=== PATIENT | male | born 1945 | race Caucasian/White ===

== ENCOUNTER 2018-12-14 10:53 | Inpatient (IN) | payer OTHER, MEDICARE ==
[~2018-12-14] VITALS: Ht 177.8 cm; Wt 62.3 kg
[2018-12-14 11:05] LABS: Calcium, Ionized (POC) 1.16 mmol/L (1.10-1.46); Chloride (POC) 92 mmol/L (98-108); Creatinine (POC) 0.8 mg/dL (0.8-1.3); Glucose (ISTAT POC) 194 mg/dL (70-99); Hemoglobin (POC) 14.6 g/dL (13.5-17.5); Potassium (POC) 3.7 mmol/L (3.5-5.5); Sodium (POC) 126 mmol/L (135-148); Total CO2 (POC) 17 mmol/L (21-32)
[2018-12-14 11:14] LABS: BASOPHILS ABSOLUTE AUTO 0.05 K/mm3 (0.00-0.23); BASOPHILS PERCENT AUTO 1 % (0-2); EOSINOPHILS ABSOLUTE AUTO 0.01 K/mm3 (0.00-0.68); EOSINOPHILS PERCENT AUTO 0 % (0-6); Hematocrit 40.9 % (37.0-53.0); Hemoglobin 13.9 g/dL (13.5-17.5); IMMATURE GRAN ABSOLUTE AUTO 0.24 K/mm3 (0.00-0.10); IMMATURE GRAN PERCENT AUTO 2 % (0-1); LYMPHOCYTES ABSOLUTE AUTO 1.73 K/mm3 (0.84-5.20); LYMPHOCYTES PERCENT AUTO 16 % (21-46); MONOCYTES ABSOLUTE AUTO 0.49 K/mm3 (0.16-1.47); MONOCYTES PERCENT AUTO 5 % (4-13); Mean Corpuscular HGB 38.3 pg (26.0-34.0); Mean Corpuscular Volume 113 fL (80-100); Mean Platelet Volume 9.1 fL (9.1-12.4); NEUTROPHILS ABSOLUTE AUTO 8.38 K/mm3 (1.96-9.15); NEUTROPHILS PERCENT AUTO 77 % (41-73); NRBC ABSOLUTE 0.03 K/mm3 (0.00-0.02); NRBC Auto 0.3 /100 WBC (0.0-0.2); Platelet Count 180 K/mm3 (150-400); RDW Coefficient Variation 13.3 % (11.7-14.2); RDW Standard Deviation 56.1 fL (35.1-46.3); Red Blood Cell Count 3.63 M/mm3 (4.30-5.90)
[2018-12-14 11:27] LABS: International Normalized Ratio 0.95; Prothrombin Time Results 10.1 Sec (9.7-11.5)
[2018-12-14 11:34] LABS: Alanine Aminotransfer (ALT/SGP 137 U/L (12-78); Albumin, Blood 3.9 g/dL (3.4-5.0); Alk Phos 154 U/L (50-136); Anion Gap 22 mmol/L (6-16); Aspartate Aminotrans (AST/SGOT 207 U/L (12-37); Bilirubin, Total 1.2 mg/dL (0.1-1.0); Blood Urea Nitrogen 5 mg/dL (8-24); Bun/Creatinine Ratio 6.8 (12.0-20.0); CO2, Blood 15 mmol/L (21-32); Calcium, Blood 9.3 mg/dL (8.5-10.1); Chloride, Blood 91 mmol/L (98-108); Creatinine, Blood 0.74 mg/dL (0.60-1.20); Ethanol (Alcohol), Blood, Med <3 mg/dL; Globulin, Blood 3.9 g/dL (2.2-4.0); Glomerular Filtration Rate >60 (60-); Glucose, Blood 188 mg/dL (70-99); Potassium, Blood 3.7 mmol/L (3.5-5.5); Sodium, Blood 128 mmol/L (136-145); Total Protein, Blood 7.8 g/dL (6.4-8.2)
[2018-12-14 12:02] LABS: PCO2 Arterial 48.6 mmHg (35-45); PO2 Arterial 253 mmHg (80-100)
[2018-12-14] MEDS ORDERED: Prozac40 MG PO (13:01)
[2018-12-14] MEDS ORDERED: Mobic15 MG PO (13:01)
[2018-12-14] MEDS ORDERED: Lipitor20 MG PO (13:01)
[2018-12-14] MEDS ORDERED: Aspir 8181 MG PO (13:02)
[2018-12-14] MEDS ORDERED: VALSARTAN160 MG PO (13:02)
[2018-12-14] MEDS ORDERED: B-121000 MC2 PO (13:02)
[2018-12-14] MEDS ORDERED: VITAMIN D31000 UNI2 PO (13:03)
--- NOTE | 2018-12-14 14:26 | NUR ---
met with patients family and review of pt in ER. Follow up after plan is presented.
[2018-12-14 14:35] LABS: Base Excess Venous -5.2 mmol/L; Bicarbonate Venous 20.4 mmol/L (24.0-30.0); PCO2 Venous 37.5 mmHg (38-42); PO2 Venous 67.7 mmHg (38-42); pH Blood Venous 7.35 (7.34-7.37)
[2018-12-14 15:15] LABS: U Amphetamine Screen Not Detected; U Barbituate Screen Not Detected; U Benzodiazapine Screen Not Detected; U Buprenorphine Screen Not Detected; U Cannabinoids Screen Not Detected; U Cocaine Screen Not Detected; U Methadone Screen Not Detected; U Methamphetamine Screen Not Detected; U Opiates Screen Not Detected; U Oxycodone Screen Not Detected; U Phencyclidine Screen Not Detected; U Propoxyphene Screen Not Detected
--- NOTE | 2018-12-14 16:44 | NUR ---
1350: PT TO ICU 9 FROM ER INTUBATED AND SEDATED, DR. PANIAGUA AT BEDSIDE. VENT SETTINGS AC 16, Vt 400, PEEP 5, FIO2 65%. PT'S VT'S 500'S, RR 28, SPO2 98-100%, VENT CHANGED TO PRESSURE SUPPORT SETTINGS BY WITH PEEP 5, FIO2 50%, PT'S Vt, AND SPO2 UNCHANGED. PT APPEARS MORE COMFORTABLE, IS NOT RESTLESS, RR 20. COPIUS AMOUNTS OF THICK YELLOW SPUTUM FROM ETT. LS CLEAR AFTER SUCTIONING. HR SINUS TACH, BP ELEVATED, ABD SOFT, NONTENDER TO PALPATION. BERGERON SECURED, PATENT AND DRAINING TO GRAVITY. PROPOFOL AT 50MCG/KG/MIN, PT OPENS EYES TO TOUCH, DOES NOT FOLLOW COMMANDS, TRACKS MOVEMENTS BRIEFLY BEFORE CLOSING EYES AGAIN. ELIER. PT'S S/O AT BEDSIDE SPEAKING WITH DOCTOR. 1515: CRITICAL LACTIC ACID LEVEL RECEIVED, REPORT TO DOCTOR PANIAGUA, NEW ORDERS RECEIVED. 1630: SECOND IV INSERTED BY TETE CHEEMA. BOLUSES AND ABX INFUSING PER ORDERS, PROPOFOL 45MCG, PT WAKES TO NOISE, STILL DOES NOT FOLLOW COMMANDS. CXR COMPLETED.
--- NOTE | 2018-12-14 17:38 | NUR ---
SPOKE WITH ON PHONE TO COMPLETE ADMISSION PAPERWORK, REPORTS PT GETS A FLU SHOT AND HAS NOT HAD ONE YET THIS YEAR, WILL ADMINISTER PER ORDERS. PT'S RR 9-10, PT RESTING QUIETLY, OPENS EYES TO VOICE. PROPOFOL DECREASED TO 40MCG, RR 12, WILL CONTINUE TO TITRATE ABLE. MOVEMET NOTED IN ALL EXTREMETIES, NO LEFT SIDED GAZE PRESENT, PT MOVES HEAD LEFT AND RIGHT AND LOOKS IN BOTH DIRECTIONS. DOES NOT FOLLOW COMMANDS. VSS. SEIZURE PRECAUTIONS IN PLACE.
--- NOTE | 2018-12-14 19:09 | NUR ---
PT REMAINS ON SPONTANEOUS VENT SETTING 12/05, FIO2 30%. RR 12, SPO2 98, Vt 700'S. OCCASIONAL COUGH NOTED, SPUTUM PRODUCTION HAS SLOWED TO MODERATE OUT, REMAINS THICK AND YELLOW. LS CLEAR. PT RESTING WITH EYES CLOSED, WAKES EASILY TO VOICE, DOES NOT FOLLOW COMMANDS, DOES TRACK MOVEMENT. PROPOFOL 35MCG INFUSING. BLANKETS OF FOR LOW GRADE TEMP. OGT WITH 400ML GREEN OUTPUT. REPORT TO ONCOMING SHIFT.
--- NOTE | 2018-12-14 19:45 | NUR ---
ASSUMED CARE RECEIVED REPORT FROM NEEL EPSTEIN. PT IS LYING IN BED WITH EYES OPEN, LOOKING AT YOU, BUT IS NOT FOLLOWING COMMANDS. PT IS INTUBATED WITH 7.5 ETT, 26 AT THE LIP. VENT IS SET AT SPONTANEOUS 10/5, 30%. CURRENT GTTPS: PROPOFOL 35MCG/KG/MIN, AND NS 125ML/HR. PT HAS SCD'S ON BILATERAL CALVES, SWB ON BILATERAL WRISTS SECURED TO BED, A BERGERON PATENT AND HANGING TO GRAVITY. THE OG TUBE IS HOOKED UP TO LIS. BED IS LOW AND LOCKED,
--- NOTE | 2018-12-14 20:22 | NUR ---
CALL TO HOSPITALIST CALLED KANDACE REGARDING PT'S HYPERTENSION AND SHE INSTRUCTED ME TO LET IT BE FOR NOW AND TO CALL HER IF SBP > 220.
--- NOTE | 2018-12-14 21:56 | NUR ---
APNEA PT WENT APNEIC ON SPONTANEOUS SETTINGS, SO VENT WENT TO ACVC MODE FOR APPROX. 5 MINS. HE WAS LESS RESPONSIVE THEN EARLIER, WITH STIMULATION HE JUMPED BACK INTO SPONTANEOUS MODE. I HAVE BEEN TITRATING DOWN SEDATION TO ACHEIVE JIMMY OF 3. PT IS CURRENTLY A LITTLE BRADYNEPA, WILL CONTINUE TO MONITOR SEDATION IS TITRATED DOWN.
--- NOTE | 2018-12-15 07:31 | NUR ---
SHIFT SUMMARY PT REMAINS INTUBATED WITH 7.4 ETT, 26 AT LIP. CURRENTLY ON SPONTANEOUS SETTINGS WITH 10/5 PS, 25% FIO2. CURRENTLY INFUSING IS PROPOFOL AT 25MCG/KG/MIN, AND NS AT 125ML/HR. BERGERON IS PATENT AND HANGING TO GRAVITY, HE HAD ADEQUATE URINE OUTPUT OVERIGHT (SEE I/O'S). HE HAS AN OG TUBE HOOKED UP TO LIS, WITH SIGNIFICANT OUTPUT (475ML). PT IS INCREASINGLY RESPONSIVE AND ALERT. START OF SHIFT PT COULD ONLY OPEN EYES AND TRACK, ALONG WITH MOVING ALL EXTREMETIES (LEFT ARM IS LIMITED), NOT FOLLOWING ANY COMMANDS. OVERNIGHT PT CAN NOW NOD, YES AND SHAKE HIS HEAD NO TO QUESTIONS. HE SQUEEZED MY FINGERS, WITH EQUAL ROVING COURT REPORTER AND WIGGLED TOES. HE HAS NO FACIAL DROOP PRESENT. HE DENIED PAIN OR GREAT DISCOMFORT. PT IS IN SINUS RHYTHM, STABLE BP. FAIRLY CLEAR AND DIMINISHED IN LUNG BASES. PRODUCING MODERATE AMOUNT OF THIN, CLEAR SECRETIONS FROM TRACHEA AND ORAL CAVITY. NO BM OVERNIGHT, ACTIVE BT'S, AND PASSING GAS. BERGERON IS PATENT AND HANGING TO GRAVITY, PT HAD ADEQUATE URINE OUT PUT (SEE I/O'S). ~1700-1800ML OF IVF INPUT. BED IS LOW AND LOCKED. CALL LIGHT WITHIN REACH.
[2018-12-15 08:20] LABS: Hematocrit 29.6 % (37.0-53.0); Hemoglobin 10.2 g/dL (13.5-17.5)
--- NOTE | 2018-12-15 08:50 | NUR ---
DR WRIGHT: PROVIDER AT BEDSIDE. NO CHANGES AT THIS TIME. CONTINUE W/ POC PER DR PANIAGUA. WILL CONTINUE TO MONITOR & UPDATE NEEDED.
--- NOTE | 2018-12-15 09:00 | NUR ---
ASSUMED CARE: REPORT RECEIVED FROM CHANDNI Sommer RN. ASSUMED CARE OF THIS PT AT APPROX 0700. ON ASSESSMENT, THE PT IS AWAKE & ANSWERING YES/ NO QUESTIONS W/ HEAD NODS. HE BECOMES AGITATED EASILY W/ STIMULUS & NEEDS REMINDERS TO REMAIN CALM. PROPOFOL FOR SEDATION DOCUMENTED. LS ARE CLEAR T/O, VENT SETTINGS: SPONTANEOUS W/ PS 10/5 & FIO2 25%. PT TOLERATING WELL W/ O2 SATS > 92%. MONITOR SHOWS SR W/ HR 60s, BP STABLE, OCCASIONAL HTN W/ AGITATION. OGT TO LIS W/ MOD AMNTS OF GASTRIC DRAINAGE. BERGERON PATENT/ DRAINING. WILL CONTINUE TO MONITOR & UPDATE NEEDED.
[2018-12-15 09:12] LABS: Anion Gap 8 mmol/L (6-16); Blood Urea Nitrogen 7 mg/dL (8-24); Bun/Creatinine Ratio 10.5 (12.0-20.0); CO2, Blood 24 mmol/L (21-32); Calcium, Blood 8.2 mg/dL (8.5-10.1); Chloride, Blood 104 mmol/L (98-108); Creatinine, Blood 0.67 mg/dL (0.60-1.20); Glomerular Filtration Rate >60 (60-); Glucose, Blood 84 mg/dL (70-99); Potassium, Blood 3.3 mmol/L (3.5-5.5); Sodium, Blood 136 mmol/L (136-145)
--- NOTE | 2018-12-15 09:20 | NUR ---
DR PANIAGUA: PROVIDER AT BEDSIDE TO SEE PT. SHE IS HOPEFUL TO EXTUBATE TODAY. VENT SETTINGS CHANGED TO PS 5/5, FIO2 25%. ORDERS FOR CXR & LABWORK HAVE BEEN PLACED & SHE WOULD LIKE TO BE NOTIFIED WHEN RESULTS ARE BACK. WILL EXTUBATE IF STABLE. WILL CONTINUE TO MONITOR & UPDATE NEEDED.
[2018-12-15 09:30] LABS: Base Excess Venous -0.8 mmol/L; Bicarbonate Venous 24.1 mmol/L (24.0-30.0); PCO2 Venous 31.7 mmHg (38-42); PO2 Venous 82.2 mmHg (38-42); pH Blood Venous 7.47 (7.34-7.37)
[2018-12-15 09:51] LABS: BASOPHILS PERCENT AUTO 0 % (0-2); EOSINOPHILS PERCENT AUTO 0 % (0-6); Hematocrit 29.2 % (37.0-53.0); Hemoglobin 10.2 g/dL (13.5-17.5); IMMATURE GRAN ABSOLUTE AUTO 0.02 K/mm3 (0.00-0.10); IMMATURE GRAN PERCENT AUTO 0 % (0-1); LYMPHOCYTES PERCENT AUTO 10 % (21-46); MONOCYTES ABSOLUTE AUTO 0.27 K/mm3 (0.16-1.47); MONOCYTES PERCENT AUTO 5 % (4-13); Mean Corpuscular HGB 38.5 pg (26.0-34.0); Mean Corpuscular HGB Conc 34.9 g/dL (31.5-36.5); Mean Corpuscular Volume 110 fL (80-100); Mean Platelet Volume 9.5 fL (9.1-12.4); NEUTROPHILS ABSOLUTE AUTO 4.31 K/mm3 (1.96-9.15); NEUTROPHILS PERCENT AUTO 85 % (41-73); Platelet Count 103 K/mm3 (150-400); RDW Coefficient Variation 13.8 % (11.7-14.2); RDW Standard Deviation 55.5 fL (35.1-46.3); Red Blood Cell Count 2.65 M/mm3 (4.30-5.90)
[2018-12-15 10:08] LABS: Alanine Aminotransfer (ALT/SGP 73 U/L (12-78); Albumin, Blood 2.6 g/dL (3.4-5.0); Alk Phos 70 U/L (50-136); Anion Gap 5 mmol/L (6-16); Aspartate Aminotrans (AST/SGOT 63 U/L (12-37); Blood Urea Nitrogen 7 mg/dL (8-24); Bun/Creatinine Ratio 11.5 (12.0-20.0); CO2, Blood 23 mmol/L (21-32); Calcium, Blood 8.1 mg/dL (8.5-10.1); Chloride, Blood 105 mmol/L (98-108); Creatinine, Blood 0.61 mg/dL (0.60-1.20); Glomerular Filtration Rate >60 (60-); Glucose, Blood 83 mg/dL (70-99); Potassium, Blood 3.2 mmol/L (3.5-5.5); Sodium, Blood 133 mmol/L (136-145)
[2018-12-15 10:09] LABS: Albumin/Globulin Ratio 0.9 (0.8-1.8); Globulin, Blood 2.8 g/dL (2.2-4.0); Total Protein, Blood 5.4 g/dL (6.4-8.2)
--- NOTE | 2018-12-15 10:26 | NUR ---
EXTUBATION: DR PANIAGUA HAS REVIEWED CXR & LABWORK, STS SHE WOULD LIKE THE PT TO BE EXTUBATED THIS AM. SEDATION HAS BEEN TURNED OFF & DISCONNECTED FROM PT, OGT CLAMPED. JOHN, RT, NOTIFIED OF THIS & IS AT BEDSIDE. 2L NC PLACED ON PT, ETT SUCTIONED & PT EXTUBATED AT 1020. HE IS TOLERATING 2L NC WELL W/ O2 SATS > 92% & COUGH IS MODERATELY STRONG/ PRODUCTIVE. PT IS ENCOURAGE NOT TO TALK & TO REST. HE HAS BEEN REEDUCATED ON THE CALL LIGHT & NODS HEAD IN UNDERSTANDING. WILL CONTINUE TO MONITOR & UPDATE NEEDED.
--- NOTE | 2018-12-15 10:43 | NUR ---
UPDATE: PT FOUND ATTEMPTING TO GET OOB. HE IS ANGRY & STS HAVING TO PEE. HE IS REMINDED THAT HE HAS A CATHETER IN. HE IS SOMEWHAT REDIRECTABLE & STS HE WILL NOT ATTEMPT TO GET OOB AGAIN. BED ALARM NOW SET. DR PANIAGUA AWARE OF THIS & STS TO PLACE ORDERS FOR CIWA PROTOCOL. PT IS A DAILY DRINKER, 6-7 BEERS/DAY PER REPORT OF .
--- NOTE | 2018-12-15 12:26 | NUR ---
UPDATE: ALCOHOL W/D HAS BEEN DISCUSSED W/ THE PT's . SHE STS HE HAS NO INTENTION OF QUITTING DRINKING ETOH & THAT HE HAS NEVER BEEN W/O ALCOHOL LONG ENOUGH TO WITHDRAW BEFORE. WHEN THIS RN ASKS THE PT HOW MUCH ALCOHOL HE DRINKS ON A DAILY BASIS HE REPLIES "ENOUGH TO GET THE JOB DONE," HE WILL THEN ANSWER NO FURTHER QUESTIONS REGARDING ETOH & BECOMES FRUSTRATED W/ QUESTIONS. PT REQUESTS TO GET OOB TO CHAIR W/ PRESENT IN ROOM. AFTER LEAVES ROOM, PT DANGLES AT BEDSIDE & STS "I'M SO WEAK & OLD, NO WAY I CAN WALK FAR TODAY." WHEN ASKED TO THEN STAND & TX TO THE RECLINER CHAIR, THE PT YELLS AT STAFF "GET THE HELL OFF ME, I CAN WALK, I'M NOT THAT OLD!" WHEN IT IS EXPLAINED THAT FOR SAFETY PURPOSES WE NEED TO BE NEAR THE PT FOR FIRST TX OOB, HE STS "FORGET THIS, I'LL JUST STAY IN THIS DAMN BED THEN." PT HAS BEEN REPOSITIONED & BOOSTED IN BED, HE IS NOW RESTING QUIETLY & BED ALARM ON. WILL CONTINUE TO MONITOR & UPDATE NEEDED.
--- NOTE | 2018-12-15 17:43 | NUR ---
SHIFT SUMMARY: NO ACUTE CHANGES SINCE PRIOR UPDATES. PT REMAINS A&O, COOPERATIVE IN GENERAL. DOES BECOME SOMEWHAT AGITATED W/ CARE BUT IS EASILY REDIRECTABLE. LS ARE CLEAR T/O, PT ON RA W/ O2 SATS > 92%. DOES HAVE OCCASIONAL COUGH THAT IS PRODUCTIVE FOR CLEAR THIN SPUTUM. MONITOR SHOWS SR W/ HR 70s, BP IS STABLE, HTN W/ AGITATION. PT HAS NO GI COMPLAINTS, STS HE DOES NOT EAT MORE THAN ONE MEAL PER DAY AT HOME NORMALLY. BERGERON PATENT/ DRAINING. ALEN Casarez, PALLIATIVE CARE RN, HAS BEEN AT BEDSIDE TO DISCUSS CODE STATUS W/ THE PT HE HAD PRIOR EXPRESSED THAT HE WOULD NOT LIKE TO BE INTUBATED AGAIN. THE PT IS NOW A DNR & A POLST HAS BEEN COMPLETED. DR WRIGHT AWARE & POLST IS ON FRONT OF CHART TO BE SIGNED BY PROVIDER. ORDERS PLACED TO REFLECT DNR STATUS. WILL CONTINUE TO MONITOR & REPORT OFF TO ONCOMING RN.
--- NOTE | 2018-12-15 18:24 | NUR ---
[facility] INITIAL VISIT: INTRODUCED MYSELF TO PT WHO IS SITTING UP IN BED, EATING HIS DINNER, BEER CAN IN HAND. BEFORE I SPOKE HE STATED, "I'M DOING JUST FINE, IF THAT IS WHAT YOU WERE GOING TO ASK.". AFTER INTRODUCTIONS, I EXPLAINED MY PURPOSE IN VISITING TO CHECK ON S/S AND TO DISCUSS HIS WISHES FOR HIS CARE NOW AND IN THE FUTURE. HE HAD STATED TO HIS AND STAFF EARLIER THAT HE WOULD NOT WANT TO BE INTUBATED AGAIN. I EXPLORED THAT STATEMENT WITH HIM AND HE IS VERY CLEAR THAT HE WOULD NEVER WANT TO BE INTUBATED AGAIN. WHEN ASKED IF HE WOULD WANT CHEST COMPRESSIONS/CPR IF HIS HEART WERE TO STOP HE SAID ABSOLUTELY NOT, WAVED HIS ARM WIDELY AND SAID, "IF I AM GONE, LET ME GO!". HIS HAD GONE HOME TO REST. I ASKED IF HE HAD DISCUSSED HIS FEELINGS ABOUT LIFE SUSTAINING CARE WITH HIS AND HE SAID, YES, SHE KNOWS. S/S ASSESSMENT DONE. PT DENIES PAIN. HE DENIES ANY DISTRESS OTHER THAN, "I REALLY JUST WANT TO GET OUT OF HERE". HE SHOWS S/S OF ANXIETY R/T HOSPITAL STAY AND CONVERSATION. HE DOES NOT APPEAR TO BE IN DISTRESS OR PAIN OTHERWISE. CALLED TO DISCUSS ABOVE AND SHE CONFIRMS THAT SHE AND NATA HAVE TALKED ABOUT HIS WISHES AND CONFIRMS THEY ARE CONSISTENT WITH WHAT HE TOLD ME ALSO. IS TEARFUL BUT VERBALIZES UNDERSTANDING AND AGREEMENT WITH SUPPORTING HIS WISHES FOR DNI/DNR. T/C TO WITH REPORT AND ORDERS OBTAINED AND ENTERED FOR CHANGE IN CODE STATUS. POLST COMPLETED PER PT'S WISHES AND LEFT ON CHART FOR SIGNATURE. AWARE. PALLIATIVE CARE WILL F/U AND FAX SIGNED POLST TO [facility] TOMORROW.
--- NOTE | 2018-12-15 19:15 | NUR ---
ASSUME CARE REPORT RECIEVED FROM OFF GOING RN SHARON. MONITOR INTACT SHOWING SINUS RHYTHM HEART RATE 90'S' DENIES DISCOMFORT. LUNG SOUNDS CLEAR UPPER LOBES WITH DECREASED SOUND IN THE BASES. RESPIRATIONS REGULAR AND EASY AT REST ON ROOM AIR WITH SPO2 93-96%. ABDOMEN SOFT WITH BOWEL SOUNDS FOUR QUADS. BERGERON PATENT DRAINING CARMEL URINE. ATTENDS IN PLACE SECONDARY TO INCONTINENCE. SKIN FRAGILE FLAKY INTACT NO EDEMA NOTED PEDAL PULSES PRESENT. CONTINUT TO MONITOR AND REPORT CHANGE IN PATIENT CONDITION. COOPERATIVE TO CARES HOWEVER VERBALIZES ANTICIPATION OF DC HOME IN AM
--- NOTE | 2018-12-15 19:55 | NUR ---
DR PANIAGUA NOTIFIED TO CLARIFY IF SHE WANTED POTASSIUM REDRAWN OR TO USE ELECTROLYTE PROTOCOL ON 0900 RESULTS. CLARIFIED TO USE 0900 RESULTS AND TO REPLACE TONIGHT. CONTINUE TO MONITOR AND REPORT CHANGE IN PATIENT CONDITION
[2018-12-16 04:02] LABS: Base Excess Venous -0.3 mmol/L; Bicarbonate Venous 24.9 mmol/L (24.0-30.0); PCO2 Venous 29.8 mmHg (38-42); PO2 Venous 53.1 mmHg (38-42)
[2018-12-16 04:11] LABS: BASOPHILS ABSOLUTE AUTO 0.01 K/mm3 (0.00-0.23); BASOPHILS PERCENT AUTO 0 % (0-2); EOSINOPHILS PERCENT AUTO 0 % (0-6); Hematocrit 28.1 % (37.0-53.0); Hemoglobin 9.7 g/dL (13.5-17.5); IMMATURE GRAN ABSOLUTE AUTO 0.02 K/mm3 (0.00-0.10); IMMATURE GRAN PERCENT AUTO 1 % (0-1); LYMPHOCYTES ABSOLUTE AUTO 0.64 K/mm3 (0.84-5.20); LYMPHOCYTES PERCENT AUTO 16 % (21-46); MONOCYTES ABSOLUTE AUTO 0.25 K/mm3 (0.16-1.47); MONOCYTES PERCENT AUTO 6 % (4-13); Mean Corpuscular HGB 38.6 pg (26.0-34.0); Mean Corpuscular HGB Conc 34.5 g/dL (31.5-36.5); Mean Corpuscular Volume 112 fL (80-100); Mean Platelet Volume 9.2 fL (9.1-12.4); NEUTROPHILS ABSOLUTE AUTO 3.17 K/mm3 (1.96-9.15); NEUTROPHILS PERCENT AUTO 78 % (41-73); Platelet Count 103 K/mm3 (150-400); RDW Coefficient Variation 13.5 % (11.7-14.2); RDW Standard Deviation 55.4 fL (35.1-46.3); Red Blood Cell Count 2.51 M/mm3 (4.30-5.90); White Blood Cell Count 4.09 K/mm3 (4.00-11.30)
[2018-12-16 04:33] LABS: Alanine Aminotransfer (ALT/SGP 68 U/L (12-78); Albumin, Blood 2.6 g/dL (3.4-5.0); Albumin/Globulin Ratio 0.9 (0.8-1.8); Alk Phos 64 U/L (50-136); Anion Gap 8 mmol/L (6-16); Aspartate Aminotrans (AST/SGOT 65 U/L (12-37); Bilirubin, Total 1.3 mg/dL (0.1-1.0); Blood Urea Nitrogen 6 mg/dL (8-24); Bun/Creatinine Ratio 9.3 (12.0-20.0); CO2, Blood 23 mmol/L (21-32); Calcium, Blood 8.4 mg/dL (8.5-10.1); Chloride, Blood 102 mmol/L (98-108); Creatinine, Blood 0.64 mg/dL (0.60-1.20); Glomerular Filtration Rate >60 (60-); Glucose, Blood 76 mg/dL (70-99); Magnesium, Blood 1.9 mg/dL (1.6-2.4); Phosphorus, Blood 2.1 mg/dL (2.5-4.9); Potassium, Blood 3.2 mmol/L (3.5-5.5); Sodium, Blood 133 mmol/L (136-145); Total Protein, Blood 5.6 g/dL (6.4-8.2)
--- NOTE | 2018-12-16 05:19 | NUR ---
SHIFT SUMMARY: REST QUIETLY DURING NIGHT DOZES AT INTERVALS. MONITOR INTACT SHOWING SINUS RHYTHM HEART RATE 80'S-90'S. COOPERATIVE TO CARES CONTINUES TO FOLLOW DIRECTIONS.. LUNG SOUNDS CLEAR UPPER LOBES WITH DECREASED COARSE SOUNDS IN THE BASES. REQUIRED O2 DURING NOC 2L/MIN PER NASAL CANNULA. SPO2 93-95%. ABDOMEN SOFT WITH BOWEL SOUNDS FOUR QUADS. BERGERON PATENT DRAINING CARMEL URINE. PEDAL PULSES PRESENT NO EDEMA NOTED SKIN FRAGILL DRY FLAKEY. CONTINUE TO MONITOR AND REPORT CHANGE IN PATIENT CONDITION.
--- NOTE | 2018-12-16 07:22 | NUR ---
ASSUMED CARE: PT RESTING QUIETLY IN BED, O2 3L VIA NC. HR NSR IN 80S AT THIS TIME. NO ACUTE NEEDS OR DISTRESS AT THIS TIME. BED ALARM ON.
--- NOTE | 2018-12-16 08:25 | NUR ---
DR HARRISON CAME TO SEE PT. AWARE OF HYPERTENSION, STATES WILL REVIEW HOME MEDS. PCU STATUS NOW. CHARGE AND FAMILY AWARE
--- NOTE | 2018-12-16 10:50 | NUR ---
MEPILEX APPLIED TO REDDENED COCCYX, SITE BLANCHES. DR PANIAGUA AWARE OF ECHO DONE AND PRELIM RESULTS PER BILL, ORDNANCE ENGINEERING TECHNICIAN. AWARE OF NEED FOR LABS
--- NOTE | 2018-12-16 12:36 | NUR ---
PT SET OFF CHAIR ALARM GETTING TO TOILET WITHOUT CALLING FOR ASSISTANCE. PT PULLED CATHETER OUT ON HIS WAY. BLEEDING FROM [place] NOW. PT BACK TO CHAIR WITH TAB ALARM ON AND CURTAIN OPEN. WILL CONTINUE TO MONITOR
--- NOTE | 2018-12-16 14:12 | NUR ---
Echocardiogram completed.
--- NOTE | 2018-12-16 15:43 | NUR ---
PT VOIDING FREQUENTLY WITH BLOOD IN URINE NOTED, BRIGHT RED. BLADDER SCAN DONE WITH ONLY 30MLS FOUND ON AVERAGE. WILL CONTINUE TO MONITOR
--- NOTE | 2018-12-16 16:38 | NUR ---
REPORT CALLED TO TETE CASTILLO. JONATHAN AWARE OF PT'S BLEEDING WITH VOIDING IS PT'S . JONATHAN ALSO AWARE OF KPHOS TO BE CONTINUED UPON TRANSFER. AT BEDSIDE AND AWARE OF TRANSFER. PT TAKEN TO MEDICAL FLOOR VIA WHEEL CHAIR BY HOSPITAL STAFF
--- NOTE | 2018-12-16 17:00 | NUR ---
PT ARRIVED TO THE UNIT WHEELCHAIR. PT IS A/O BUT CONFESSES INTERMITENT CONFUSION. PT LUNGS SOUNDS ARE DIMINISHED WITH WHEEZES IN THE BASE. PT HAS IV IN THE R AC INFUSING. PT ORIENTATED TO THE ROOM.
--- NOTE | 2018-12-17 03:53 | NUR ---
hAS BEEN RESTING QUIETLY WITH FEW INTERRUPTIONS THIS SHIFT AFTER HS. UP TO THE BR X 1, STEADY, HOLDING ONTO FURNTIURE, BACK TO BED WITHOUT INCIDENT. VOICED EARLIER THAT HE QWANTED TO GO HOME LATER TODAY. AM SIFT TO FOLLOW UP. CALL LIGHT IN REACH.
[2018-12-17 06:22] LABS: Anion Gap 7 mmol/L (6-16); Blood Urea Nitrogen 4 mg/dL (8-24); Bun/Creatinine Ratio 6.8 (12.0-20.0); CO2, Blood 26 mmol/L (21-32); Calcium, Blood 8.5 mg/dL (8.5-10.1); Chloride, Blood 99 mmol/L (98-108); Creatinine, Blood 0.59 mg/dL (0.60-1.20); Glomerular Filtration Rate >60 (60-); Glucose, Blood 88 mg/dL (70-99); Magnesium, Blood 2.2 mg/dL (1.6-2.4); Phosphorus, Blood 2.9 mg/dL (2.5-4.9); Potassium, Blood 3.2 mmol/L (3.5-5.5); Sodium, Blood 132 mmol/L (136-145)
--- NOTE | 2018-12-17 10:14 | NUR ---
Pt visit this AM. Pt getting dressed and appears very anxious. He states he getting ready to leave as soon as the dr visits. He states that he has been here long enough. Pt adamant of leaving and appears there is no reasoning with him at this point. Discussed case with bedside nurse Nasima. Discussed case with Dr Merida and he signs POLST. Obtained copy of POLST and faxed to medical records. Gave original to Pt and instructed to hang on refridgerator with V/U made by Pt. Pt reports no other concerns at this time. Palliative Care will remain available.
[2018-12-17] MEDS ORDERED: LEVO750 PO (11:35)
[2018-12-17] MEDS ORDERED: THERA1 EACH PO (11:36)
[2018-12-17] MEDS ORDERED: POTA10T PO (11:36)
--- NOTE | 2018-12-17 12:21 | NUR ---
PT DISCHARGE REVIEWED DC INSTRUCTIONS AND MEDICATIONS WITH PT AND SPOUSE- VERB UNDERSTANDING. NEW MEDS FAXED TO [facility]. PT SITTING UP IN CHAIR WAITING FOR OUT PT ROLL PANNER TO BE PLACED.
--- NOTE | 2018-12-17 12:30 | NUR ---
PT DISCHARGED WITH VIA . PERSONAL BELONGINGS WITH PT.
== END 2018-12-17 12:30 | disposition home or self-care (01) | DRG 871 ==
LOC: ER 10:53 → ICUW 14:12 → MEDS 14:12 → ICUW 14:14 → MEDS 12-16 16:34 → ENPENDDIS 12-17 11:42 → MEDS 12-17 12:30
PROVIDERS: Emergency Medicine; Internal Medicine Pulmonary Disease; ADMIT Internal Medicine
PROC: 0BH17EZ Insertion of Endotracheal Airway into Trachea, Via Natural or Artificial Opening (ICD-10-PCS; principal; 2018-12-14)
PROC: 5A1935Z Respiratory Ventilation, Less than 24 Consecutive Hours (ICD-10-PCS; 2018-12-14)
DX: A41.9 Sepsis, unspecified organism (principal); R65.21 Severe sepsis with septic shock; G92 Toxic encephalopathy; J96.00 Acute respiratory failure, unspecified whether with hypoxia or hypercapnia; E87.2 Acidosis; F10.239 Alcohol dependence with withdrawal, unspecified; I10 Essential (primary) hypertension; E87.6 Hypokalemia; R54 Age-related physical debility; I70.8 Atherosclerosis of other arteries; Z85.819 Personal history of malignant neoplasm of unspecified site of lip, oral cavity, and pharynx; E78.5 Hyperlipidemia, unspecified
CPT/HCPCS: 31500; 31720; 36415; 36600; 51702; 70496; 70498; 71045; 71275; 80047; 80048; 80053; 82803; 83605; 83735; 83880; 84100; 84443; 84484; 85014; 85018; 85025; 85610; 85730; 87040; 87070; 87077; 87185; 87205; 90686; 93005; 93010; 93306; 94002; 94003; 94640; 94660; 94760; 96374-59; 99285-25; C9113; G0480; J0330; J1650; J2250; J2543; J2704; J3010; J3411; J3475; J3480; J7030; J7050; J7060; J7120; Q9967

== ENCOUNTER 2019-11-12 15:37 | Emergency (ER) | payer OTHER ==
[~2019-11-12] VITALS: Ht 170.2 cm; Wt 63.5 kg
[~2019-11-12 15:37] MED LIST: Aspir 8181 MG PO; B-121000 MC2 PO; LEVO750 PO; Lipitor20 MG PO; Mobic15 MG PO; POTA10T PO; Prozac40 MG PO; THERA1 EACH PO; VALSARTAN160 MG PO; VITAMIN D31000 UNI2 PO
== END 2019-11-12 17:34 | disposition home or self-care (01) ==
LOC: ER 15:37
DX: S01.111A Laceration without foreign body of right eyelid and periocular area, initial encounter (principal); S16.1XXA Strain of muscle, fascia and tendon at neck level, initial encounter; Z23 Encounter for immunization; W22.8XXA Striking against or struck by other objects, initial encounter; Y93.89 Activity, other specified
CPT/HCPCS: 12011; 70450; 72125; 90471; 90714; 99283-25